=== PATIENT | male | born 1975 | race Caucasian/White ===

== ENCOUNTER 2017-09-14 01:05 | Inpatient (IN) | payer MEDICAID, OTHER ==
--- NOTE | 2017-09-14 01:10 | EDPHY ---
H & P Source: Patient, EMS Time Seen by Provider: 09/14/17 01:08 HPI/ROS: HPI CHIEF COMPLAINT: Suicide attempt, hanging, M1 hold by police HISTORY OF PRESENT ILLNESS: Patient is a 41-year-old male, otherwise healthy, history depression, presents emergency room after he attempted to hang himself with a climbing wrote from a [place] and then jumped off a table. The road apparently gave way. Does have some abrasions to the anterior neck. No trouble swallowing or breathing. This was a suicide attempt. He states that his is serving him with divorce papers in his due to sign tomorrow he has been feeling more depressed and upset. Denies ingestion. Denies alcohol intoxication. Past Medical History: Depression Past Surgical History: No recent surgical history Social History: Lives locally, denies daily use drugs alcohol tobacco. Family History: Noncontributory ROS REVIEW OF SYSTEMS: A comprehensive 10 point review of systems is otherwise negative aside from elements mentioned in the history of present illness. Exam Constitutional appears well nontoxic no acute distress, triage nursing summary reviewed, vital signs reviewed, awake/alert. Eyes normal conjunctivae and sclera, EOMI, PERRLA. HENT head/neck exam: Abrasion to the anterior neck, no neck crepitus on exam, no stridor, no trouble breathing, no drooling, no significant neck swelling normal inspection, atraumatic, moist mucus membranes, no epistaxis, neck supple / no meningismus, no raccoon eyes. Respiratory clear to auscultation bilaterally, normal breath sounds, no respiratory distress, no wheezing. Cardiovascular rate normal, regular rhythm, no murmur, no edema, distal pulses normal. Gastrointestinal soft, non-tender, no rebound, no guarding, normal bowel sounds, no distension, no pulsatile mass. Genitourinary no CVA tenderness. Musculoskeletal no midline vertebral tenderness, full range of motion, no calf swelling, no tenderness of extremities, no meningismus, good pulses, neurovascularly intact. Skin pink, warm, & dry, no rash, skin atraumatic. Neurologic awake, alert and oriented x 3, AAOx3, moves all 4 extremities equally, motor intact, sensory intact, CN II-XII intact, normal cerebellar, normal vision, normal speech. Psychiatric flat affect, depressed, suicidal Heme/Lymph/Immune no lymphadenopathy. Differential Diagnosis: Includes but is not limited to suicide attempt, and hanging attempt, neck injury, depression, mood disorder, substance abuse, mental illness Medical Decision Making: Plan for this patient CT neck without contrast for trauma, attempted hanging, basic blood work, patient is on M1 hold by police will medically clear and then re-evaluate. Patient need mental health evaluation. Re-evaluation: CT cervical spine without contrast negative for acute traumatic injury called to me by Dr. Wiggins. 0511: Patient had mental health evaluation they would like to seek inpatient psychiatric treatment. Patient remains on M1 hold. 0700AM: Signed over to Dr. Veliz at 7am Shift-change (Janes Armenta) Constitutional: Initial Vital Signs Temperature (C) 36.8 C 09/14/17 01:17 Heart Rate 79 09/14/17 01:17 Respiratory Rate 18 09/14/17 01:17 Blood Pressure 138/88 H 09/14/17 01:17 O2 Sat (%) 100 09/14/17 01:17 O2 Delivery Mode Room Air Allergies/Adverse Reactions: No Known Allergies Allergy (Unverified 09/01/09 20:19) Home Medications: Medication Instructions Recorded NK [No Known Home Meds] 09/14/17 Medical Decision Making ED Course/Re-evaluation: 8:00 a.m. the patient has been accepted at [address] [place] [address] Zuluaga. We will complete transfer paperwork. (Sea Veliz) - Data Points Laboratory Results: Laboratory Results 09/14/17 01:20 09/14/17 01:20 09/14/17 09/14/17 09/14/17 02:18 01:20 01:20 WBC 8.49 10^3/uL 10^3/uL (3.80-9.50) RBC 5.45 10^6/uL 10^6/uL (4.40-6.38) Hgb 16.2 g/dL g/dL (13.7-17.5) Hct 45.6 % % (40.0-51.0) MCV 83.7 fL fL (81.5-99.8) MCH 29.7 pg pg (27.9-34.1) MCHC 35.5 g/dL g/dL (32.4-36.7) RDW 12.9 % % (11.5-15.2) Plt Count 251 10^3/uL 10^3/uL (150-400) MPV 9.3 fL fL (8.7-11.7) Neut % (Auto) 69.1 % % (39.3-74.2) Lymph % (Auto) 19.7 % % (15.0-45.0) [place] % (Auto) 10.5 % % (4.5-13.0) Eos % (Auto) 0.2 % L % (0.6-7.6) Baso % (Auto) 0.4 % % (0.3-1.7) Nucleat RBC Rel Count 0.0 % % (0.0-0.2) Absolute Neuts (auto) 5.87 10^3/uL 10^3/uL (1.70-6.50) Absolute Lymphs (auto) 1.67 10^3/uL 10^3/uL (1.00-3.00) Absolute Monos (auto) 0.89 10^3/uL H 10^3/uL (0.30-0.80) Absolute Eos (auto) 0.02 10^3/uL L 10^3/uL (0.03-0.40) Absolute Basos (auto) 0.03 10^3/uL 10^3/uL (0.02-0.10) Absolute Nucleated RBC 0.00 10^3/uL 10^3/uL (0-0.01) Immature Gran % 0.1 % % (0.0-1.1) Immature Gran # 0.01 10^3/uL 10^3/uL (0.00-0.10) Sodium 144 mEq/L mEq/L (135-145) Potassium 3.7 mEq/L mEq/L (3.5-5.2) Chloride 105 mEq/L mEq/L (97-110) Carbon Dioxide 23 mEq/l mEq/l (22-31) Anion Gap 16 mEq/L mEq/L (8-16) BUN 25 mg/dL H mg/dL (7-23) Creatinine 1.2 mg/dL mg/dL (0.7-1.3) Estimated GFR > 60 Glucose 91 mg/dL mg/dL (70-100) Calcium 10.0 mg/dL mg/dL (8.5-10.4) Urine Opiates Screen NEGATIVE (NEGATIVE) Urine Barbiturates NEGATIVE (NEGATIVE) Ur Phencyclidine Scrn NEGATIVE (NEGATIVE) Ur Amphetamine Screen NEGATIVE (NEGATIVE) U Benzodiazepines Scrn NEGATIVE (NEGATIVE) Urine Cocaine Screen NEGATIVE (NEGATIVE) U Marijuana (THC) Screen NON-NEGATIVE H (NEGATIVE) Ethyl Alcohol < 10 mg/dL mg/dL (0-10) Medications Given: Discontinued Medications Lorazepam (Ativan) 1 mg PO EDNOW ONE Stop: 09/14/17 05:37 Last Admin: 09/14/17 05:39 Dose: 1 mg Lorazepam (Ativan) 2 mg PO EDNOW ONE Stop: 09/14/17 06:59 Last Admin: 09/14/17 07:01 Dose: 2 mg Departure - Departure Disposition: [facility] Acute Clinical Impression: Suicidal behavior Condition: Fair Referrals: NONE *PRIMARY CARE P,. [Primary Care Provider] - As per Instructions
[2017-09-14 01:29] LABS: PLATELET COUNT 251 10^3/uL (150-400)
[2017-09-14] MEDS ORDERED: LORazepam 1 MG TAB ONE ×2 (05:35→06:56)
[2017-09-14] MEDS ORDERED: LORazepam 1 MG TAB PO ONE ×2 (05:36→06:58)
[2017-09-14] MEDS ORDERED: OLANZapine DISINTEGR 10 MG TAB PO PRN ×2 (10:26→13:51)
[2017-09-14] MEDS ORDERED: MAGNESIUM HYDROXIDE 30 ML UDCUP PO PRN (10:26)
[2017-09-14] MEDS ORDERED: MAG HYDROX/AL HYDROX/SIMETH 30 ML UDCUP PO PRN (10:26)
[2017-09-14] MEDS ORDERED: LORazepam 0.5 MG TAB PO PRN (10:26)
[2017-09-14] MEDS ORDERED: NICOTINE POLACRILEX 2 MG GUM B PRN (10:26)
[2017-09-14] MEDS ORDERED: hydrOXYzine HCL 25 MG TAB PO PRN (13:51)
[2017-09-14] MEDS ORDERED: OLANZapine DISINTEGR 5 MG TAB PO PRN (14:06)
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
[2017-09-14] MEDS: DIVALPROEX NA 500 MG TAB PO SCH (20:45)
[2017-09-14] MEDS: TEMAZEPAM 15 MG CAP PO PRN (20:45)
[2017-09-15] MEDS: DIVALPROEX NA 500 MG TAB PO SCH ×2 (08:48→21:02)
--- NOTE | 2017-09-15 13:39 | SOAPPROG ---
SOAP Progress Note Assessment/Plan: Assessment: 41 yo man with no prior psych hx who presented to ED with h/o irritability, insomnia, threatening behavior toward , depression x 3 mos as well as 2 reported suicide attempts (by hanging and CO poisoning) this week. Plan: 09/15/17 13:34 1. Patient dx with unspecified bipolar disorder on admission. Dr. Cee discussed the r/b/se's of mood stabilizers including lithium and VPA with patient on 09/14/17 and patient said he would "think about" taking meds. He was offered VPA last night and this AM and decided to start taking this medication for his mood and erratic behaviors. 2. Patient also took Temazepam 15 mg last night and slept 10-1/2 hrs. He reports feeling "out of it" and groggy this AM. 3. Patient had labs yesterday. His HgbA1c was 5.8, his liver function tests were WNL and his lipid panel was also WNL. His TSH was WNL. 4. Patient denies any suicidal ideation, plan or intent today. Subjective: Met with patient, reviewed chart and d/w staff. Patient presents groggy and disorganized this AM. He does not have racing thoughts or pressured speech. There is no evidence of elevated/elated mood, grandiose delusions, decreased need for sleep or increase in goal-directed activity. He denies hallucinations and there is no evidence of RIS/RES, paranoia, bizarre thoughts or IOR. He has a hard time focusing on conversation and there is a response latency when asked questions. When MD why patient thinks he is in hospital, he becomes very discursive and tells MD, "I have a life situation...my and I are ." He then goes on to talk about mediation meeting he was supposed to attend with his on Sunday at 2pm. However, he admits, "it's scary" b/c patient doesn't know "where I will live" or "how often I can see my kids." Patient denies any thoughts, plan or intent to hurt himself or anyone else. Objective: Vital Signs Temp Pulse Resp BP Pulse Ox 36.5 C 96 20 120/84 H 98 09/15/17 06:00 09/15/17 06:00 09/15/17 06:00 09/15/17 06:00 09/15/17 06:00 MSE: Affect: Flat Mood: "Tired" TP: Disorganized, circumstantial TC: Denies any SI/HI, no evidence of psychosis or anel Insight/Judgment: Impaired - Time Spent With Patient Time Spent With Patient: 25" - Pending Discharge Pending Discharge Within 24 Hours: No Pending Discharge Within 48 Hours: No ICD10 Worksheet Patient Problems: Problems Problem Status Onset Adjustment disorder with depressed mood Acute Bipolar 2 disorder Acute Cannabis use disorder, severe, dependence Acute Intermittent explosive disorder Acute Partner relationship problem Acute Personality disorder Acute Suicidal behavior Acute
[2017-09-15] MEDS: ACETAMINOPHEN 325 MG TAB PO PRN ×2 (14:29→21:17)
[2017-09-15] MEDS: TEMAZEPAM 15 MG CAP PO PRN (21:05)
[2017-09-16] MEDS: DIVALPROEX NA 500 MG TAB PO SCH ×2 (08:20→17:45)
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
[2017-09-16] MEDS ORDERED: TEMAZEPAM 15 MG CAP PO PRN (20:51)
[2017-09-17] MEDS: DIVALPROEX NA 500 MG TAB PO SCH ×2 (09:06→17:17)
--- NOTE | 2017-09-17 12:32 | SOAPPROG ---
SOAP Progress Note Assessment/Plan: Assessment: Bipolar Disorder, I, most recent episode depressed with mixed features Cannabis Use Disorder - severe Possible Intermittent Explosive Disorder or Personality Disorder Partner Relationship Problem, Adjustment Disorder Financial/Housing stressors Child Protective Services report ID#[id number] Patient admitted after 2 serious suicide attempts; had severe insomnia with agitation and impulsivity and mood swings prior to admission. reported patient was yelling, destroying property, and threatened to burn down house prior to admission. Today patient appears calm and appropriate, denies suicidal thoughts, but was very labile and emotional yesterday. Patient having excessive AM sedation from PRN medications. Plan: Patient on short term certification Continue Depakote 500mg QAM and 1000mg QHS Recheck Depakote level in AM with AST, ALT Discontinue PRN Olanzapine, Hydroxyzine, Temazepam Start Seroquel 50mg [id number] PRN agitation/anxiety Monitor mood, behavior, impulse control, judgment, risk of self-harm Contacted Child Protective Services, report ID#[id number] Refer to [facility] 09/17/17 12:42 Subjective: CC: "Doing OK, more calm, more realistic" Patient reports over weekend sleeping excessively, 10-11 hours and feeling ' drunk' in mornings and unsteady. Reports in afternoons having brief mood swings following visits by , with severe anxiety, severe sadness, and severe hopelessness. Denies any recurrence of suicidal thoughts over the weekend. Reports wanting to live for children and to return to work to provide for them. Reports today feeling calm and denies feeling agitated. Reports he is willing to engage in individual therapy and take medication after discharge. Objective: Vital Signs Temp Pulse Resp BP Pulse Ox 36.5 C 63 16 104/64 98 09/17/17 06:00 09/17/17 06:00 09/17/17 06:00 09/17/17 06:00 09/17/17 06:00 Alert male, ambulatory, appears tired. Speech RRR. "Doing OK, more calm, more realistic" Affect briefly reactive. Thoughts organized. Denies SI or violent thoughts or AH or paranoia. Limited insight. Staff report yesterday patient was volatile - in AM was sedated and drowsy, later euthymic and over-talkative, later after visit from , was lying on floor crying in the position, later agitated and pacing - received Hydroxyzine 25mg, then Olanzapine 5mg, then Temazepam 15mg later. Staff noted patient's visited patient several times on unit and called patient several times, she was observed giving patient a back rub and alternatively reporting that she wanted him to return home then later reporting she wanted to separate from him. Patient slept 10-11 hours overnight, ate breakfast, attended AM groups calmly and interacted with patients and staff appropriately. Depakote level not run due to hemolysis. Reviewed weekend ocular care technician notes. - Time Spent With Patient Time Spent With Patient: 30 minutes - Pending Discharge Pending Discharge Within 24 Hours: No Pending Discharge Within 48 Hours: Yes Pending Discharge Date: 09/19/17 Pending Discharge Time: 11:00 ICD10 Worksheet Patient Problems: Problems Problem Status Onset Adjustment disorder with depressed mood Acute Bipolar 2 disorder Acute Cannabis use disorder, severe, dependence Acute Intermittent explosive disorder Acute Partner relationship problem Acute Personality disorder Acute Suicidal behavior Acute
--- NOTE | 2017-09-17 17:19 | BCON ---
[f rep st] BEHAVIORAL HEALTH CONSULTATION INTERNAL MEDICINE CONSULTATION DATE OF CONSULTATION: 09/17/2017 REFERRING PHYSICIAN: KENDELL BRADFORD MD REASON FOR REFERRAL: Medical clearance for inpatient behavioral health stay. HISTORY OF PRESENT ILLNESS: This patient came to [facility] 3 days ago following a suicide attempt by hanging. He was evaluated by the mental health team and admitted for further psychiatric care. Currently, he complains of right calf pain and tenderness. He thinks he has a muscle cramp which he said has happened to him in the past after climbing [place] and becoming dehydrated. He also thinks that he is dehydrated. Yesterday, he was apparently over-sedated by psychiatric medications and his oral intake was low. He says he is "pounding water" now. 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 PAST SURGICAL HISTORY: He denies any history of surgeries. MEDICATIONS: He was taking no medications. SOCIAL HISTORY: He is a nonsmoker. He uses occasional alcohol. He is and has been living with his , though there is marital discord. He works as a construction consultant. FAMILY HISTORY: Noncontributory. He reports he was raised by a single mother and that he does not know very much about his family history. REVIEW OF SYSTEMS: He feels somewhat tired. He feels thirsty. He has right calf pain and tenderness; he says it is very sore. He denies cough or dyspnea. He denies pain otherwise. He denies fever or chills, and otherwise a 10- point review of systems is negative. PHYSICAL EXAM: VITAL SIGNS: Blood pressure is 104/76, heart rate is 63, respiratory rate is 16, oxygen saturation is 98% on room air, temperature is 36.5 degrees centigrade. His weight is 71 kg for a body mass index of 22.5. GENERAL: This is a well-nourished, well-developed man, appears his chronologic age, cooperative and in no acute distress. HEENT: Extraocular movements are intact. Pupils are equal and round, reactive to light. Mucous membranes are moist. Dentition is in good condition. NECK: Supple. HEART: Regular rate and rhythm with no murmurs, rubs, or gallops. LUNGS: Clear to auscultation bilaterally. ABDOMEN: Benign. EXTREMITIES: There is no cyanosis, clubbing, or edema. He is very tender in the right calf. Calf muscles are soft with no palpable muscle spasm. NEUROLOGIC: He is alert and oriented x3. Cranial nerves 2-12 are grossly intact. There is no focal weakness. Sensation is intact to light touch. LABORATORY STUDIES: From the emergency department, CBC was overall within normal limits. Serum chemistry showed some dehydration with a BUN of 25 and a creatinine of 1.2. Hemoglobin A1c was normal at 5.8. Liver function tests were normal. Lipid panel was normal. TSH was normal. Toxicology screen in the serum was negative for ethyl alcohol and in the urine was non-negative for marijuana but otherwise negative for any substances of abuse. A valproic acid level was drawn yesterday but was not processed due to gross hemolysis. ASSESSMENT/RECOMMENDATIONS: 1. Mental health issues, pending further evaluation and management per Psychiatry and the mental health team. 2. Right calf pain with history of right subclavian vein thrombosis in his 20s. Otherwise low risk per Wells score. I will get an ultrasound of the right calf to rule out a deep venous thrombosis. 3. Marijuana use disorder. I see no medical contraindications to this patient's continued stay on the inpatient behavioral health unit or to any psychiatric medications or procedures. Thank you very much for including me in the care of this patient and please do not hesitate to contact me or the hospitalist service should there be need for further medical evaluation. /[id number]/MODL MTDD
[2017-09-17 20:24] LABS: INR 0.97 (0.83-1.16); PROTIME(PATIENT) 13.1 SEC (12.0-15.0)
[2017-09-17] MEDS: APIXABAN 5 MG TAB PO SCH (20:25)
[2017-09-17] MEDS: QUEtiapine FUMARATE 50 MG TAB PO PRN (21:58)
[2017-09-18] MEDS: DIVALPROEX NA 500 MG TAB PO SCH ×2 (08:41→21:06)
[2017-09-18] MEDS: APIXABAN 5 MG TAB PO SCH (08:42)
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
[2017-09-18] MEDS: WARFARIN SODIUM 5 MG TAB PO SCH (18:09)
[2017-09-18] MEDS: QUEtiapine FUMARATE 50 MG TAB PO PRN ×3 (18:09→23:37)
[2017-09-18] MEDS: ENOXAPARIN 80 MG/0.8 ML SYR SC SCH (21:10)
[2017-09-19 08:33] LABS: INR 1.06 (0.83-1.16)
[2017-09-19] MEDS: DIVALPROEX NA 500 MG TAB PO SCH ×2 (08:54→20:38)
[2017-09-19] MEDS: ENOXAPARIN 80 MG/0.8 ML SYR SC SCH ×3 (09:08→21:15)
[2017-09-19] MEDS ORDERED: MIRTAZAPINE 15 MG TAB PO PRN (14:04)
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
[2017-09-19] MEDS: WARFARIN SODIUM 5 MG TAB PO SCH (16:31)
[2017-09-19] MEDS ORDERED: MELATONIN 3 MG TAB PO SCH (21:00)
[2017-09-20 06:38] VITALS: BP 118/73
[2017-09-20 08:21] LABS: INR 1.25 (0.83-1.16); PROTIME(PATIENT) 15.9 SEC (12.0-15.0)
[2017-09-20] MEDS: DIVALPROEX NA 500 MG TAB PO SCH (11:06)
[2017-09-20] MEDS: ENOXAPARIN 80 MG/0.8 ML SYR SC SCH (11:06)
--- NOTE | 2017-09-20 12:55 | BDS ---
[f rep st] BEHAVIORAL HEALTH DISCHARGE SUMMARY IDENTIFICATION: This is a 41-year-old male who lives with his and 4 children. He works in construction. He was not in any mental health treatment prior to admission. REASON FOR ADMISSION: Please see initial psychiatric evaluation from September 14, 2017. The patient apparently had attempted suicide by hanging in his garage, had a neck abrasion and pain. An ambulance was called to his home, and he was transferred to the ER. In the ER, he had a negative spine CT test, and he was then admitted to the inpatient psychiatric unit on an M1 hold due to concerns he was a danger to himself from a suicide attempt. HOSPITAL COURSE: The patient reported no prior mental health treatment in the past and no prior psychiatric medication trials. He reported no history of suicide attempts or violence toward others. He did report 2 suicide attempts in the days prior to admission. He reported 2 days prior to admission that he had tried to kill himself with carbon monoxide in the garage, and then the day of admission, the day of the ER visit, he tried to hang himself with a rope. The patient reported that in the past 4 months, he had been having severe insomnia, only sleeping a few hours at night, sometimes going 3-4 days without any sleep. He admitted to having irritability, agitation, yelling at his , throwing things and breaking things. He also reported a depressed mood for 1 week prior to admission, with recurrent suicidal thoughts. He reported that his yelling, screaming and throwing things and irritability starting 4 months ago led to his seeking a material man and talking about separation with the patient. He reported that on the day of his first suicide attempt, he had been told by his that she wanted to separate. The patient reported smoking cannabis several days a week. After admission to the unit when he was admitted , reported continuing to feel depressed, hopeless and sad. He also was tangential and rambling and irritable. The patient denied any history of auditory hallucinations or paranoia. He denied violent thoughts toward his or children, or any homicidal thoughts toward anyone. He reported a 4- month history of severe mood swings, insomnia, irritability and explosive anger. The assessment of the patient was complicated by the fact that the patient also reported that his would yell and scream at him and belittle him in front of his children regarding his difficulty functioning at work and difficulty taking care of his kids and doing household tasks. The patient's reported that the patient had been irritable, yelling, and menacing to her and the children. He had been destroying property in the home when upset, and this had been occurring over a 4-month period. She did report 1 week prior to admission the patient made a statement about burning down the house. The patient denied this allegation. The patient's reported that due to the patient screaming , yelling and throwing things and threat to burn down the house, that she and her children felt in danger and felt it was unsafe for him to be around them. The patient's did visit on the unit and called him several times on the unit. She was observed interacting appropriately with the patient on the unit and giving him a back rub and speaking appropriately with him on the unit. However, when she was not on the unit, she would call the nurse's station, this physician, or the social services manager, reporting that she felt unsafe being around the patient and did not want the patient to be returning home. Due to the report that the patient had made a threat of burning down the house 1 week prior to admission, combined with the fact that both the patient and the reported that they were yelling at each other and that the patient had been throwing things and destroying property in the home, Child Protective Services was contacted. The patient and the both reported that the patient had never hit the children or harmed the children, but it appeared to be an unsafe home environment. After Child Protective Services was notified of the situation , the patient's then took out a restraining order. There will be a hearing regarding this issue on October 01. On the unit, the patient initially presented as very tangential, labile, dysphoric, and tearful, briefly irritable. He was receptive to a diagnosis of bipolar disorder and possibly intermittent explosive disorder. He was given counseling about the dangers of cannabis causing anxiety, agitation, irrational thinking and behaviors. The patient was agreeable to start Depakote as a mood stabilizer for depression with mixed features, with a history of manic symptoms for several months and severe depression for at least one week. The patient was started on Depakote 500 mg and 1000 at night. He was given p.r.n. Zyprexa initially and then later Seroquel 50 or 100 at bedtime for sleep. The patient reported a marked improvement in mood and sleep with the combination of Depakote and Seroquel. One night prior to discharge, the patient tried to go without the Seroquel, but then had only 6 hours of sleep and so wanted to continue the Seroquel as a mood stabilizer and for insomnia. The patient tolerated Depakote without any severe side effects or sedation. He had a marked improvement in affect. He became more calm, more organized, less tangential, and reported a subjective improvement in mood. The patient's depression was complicated by the fact that he was presented with a restraining order by police, issued by his , and received phone calls from her in which she was telling him that he could not have any contact with the children. The patient denied further suicidal ideation. He denied violent thoughts toward his or children, or any thoughts of burning down his house. He was future oriented, reported wanting to live for his children, wanting to return to work. Discharge planning was complicated by the fact that the patient was diagnosed with a deep vein thrombosis in his right thigh. The patient was evaluated by Dr. Vinson, initially started on Eliquis, but apparently this was not covered by his insurance, and then he was switched to a combination of Lovenox injections and warfarin. The patient had subtherapeutic INR, and so will be discharged with both warfarin and Lovenox, with a followup on the day after discharge with his primary care provider to recheck his INR to determine what dose of Coumadin he should be taking, and to clarify if he needs to continue Lovenox. Due to this medical complication, the patient was not accepted as a referral to [facility], which is a step-down unit through [facility]. The patient was agreeable to a referral to [facility] for outpatient counseling and psychiatric medication management after discharge. Neither the patient's nor her parents, who live in the area, who are supports for the patient, were able to provide him with financial resources for independent housing after discharge. 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 He reports after that, he would then make a determination about a longer term housing plan. On the unit, the patient was able to complete a safety plan. He appeared calm, euthymic and appropriate. He was able to attend groups. He was eating well and interacting appropriately with others. He did not appear to be in further emotional distress prior to discharge. He was future oriented, discussing upcoming court hearings, the necessity of getting outpatient mental health treatment, continuing with Depakote and Seroquel as mood stabilizers, and exploring alternative longer term housing plans. The patient had several visits from his prior to the restraining order, as well as from his 's parents that went well. CONDITION ON DISCHARGE: He is an alert, male who is ambulatory, in no acute distress. He has no tremors. His affect is restricted, but brief smiling and humor at times. He denies thoughts to hurt himself or others. He describes his mood as "a lot better" and "a lot more calm." He denies hallucinations or paranoia. His thoughts are organized. He has fair insight, with appropriate judgment. PROCEDURES: The patient had a cervical spine CT in the emergency department on September 14. He had an extremity venous study on September 17 of his right lower extremity, which showed a thrombus. The patient was seen by Dr. Vinson for a hospitalist evaluation on September 17, 2017. ADVANCE DIRECTIVES: The patient declined an advance directive at this time. METABOLIC SCREENING: The patient had baseline lipids and a hemoglobin A1c that were in the normal range. He was counseled about the risks of Seroquel causing metabolic syndrome, diabetes, hyperlipidemia. ALCOHOL AND NICOTINE USE DISORDER SCREENING: Patient denied regular use of alcohol or nicotine. CANNABIS USE DISORDER COUNSELING: The patient received education about the dangers of cannabis causing anxiety, paranoia, psychosis and irrational thinking. LAB RESULTS: White blood cell count 8.4, hemoglobin 16.2, platelet count 251. PT 15.9, INR 1.25. APTT is 30.6 seconds. Fibrinogen is 377. D-dimer is 2.28. Protein C activity is 88%. Protein S activity is pending. Antithrombin 3 activity is 103%. Factor V Leiden tests are pending. Sodium 144, potassium 3.7 , creatinine 1.2, glucose 91. Hemoglobin A1c 5.8, calcium 10.0, AST 18, ALT 37 , triglycerides 112, LDL 87, HDL 58, TSH 1.5. Urine tox screen in the emergency room was positive for cannabis, but negative for other drugs of abuse. The patient had a valproic acid level of 116. His anticardiolipin antibody tests were negative. DISCHARGE DIAGNOSES: Bipolar disorder type 1, most recent episode mixed, severe, without psychotic features. Cannabis use disorder, severe. Partner relationship problems, severe. Rule out intermittent explosive disorder. Rule out personality disorder. Rule out adjustment disorder with depressed mood. RIght lower extremity deep vein thrombosis. Housing, financial, and legal stressors DISCHARGE MEDICATIONS: Include the following: Depakote 500 mg by mouth in the morning and 1000 mg at night; Seroquel 100 mg by mouth at bedtime; Lovenox, which is enoxaparin, 80 mg in 0.8 mL syringe subcutaneous twice a day; warfarin 5 mg daily at 4 p.m. The Depakote and Seroquel prescriptions were written as a bubble pack for 1 month. The enoxaparin and warfarin orders were only for 24 hours as the patient has a primary care appointment tomorrow morning at the [facility] at [address] [place] [address]. DISPOSITION: The patient is leaving the unit independently after his father-in- law meets with him to drop off his wallet, phone, and some possessions. FOLLOWUP: The patient has appointments tomorrow morning at [facility] to have his INR rechecked to determine if he needs to continue Lovenox or have his warfarin dose adjusted. He also has an appointment tomorrow afternoon at [facility] for an intake for mental health treatment. LEGAL STATUS: The patient was admitted on an M1 hold and then placed on a short -term certification as he was irritable and had been impulsive prior to admission and was ambivalent about receiving mental health treatment. This will be terminated upon discharge. The patient will be a voluntary treatment. INFORMED CONSENT: The patient was counseled about the risks of Depakote causing pancreatitis, hepatitis, thrombocytopenia, and sedation. He was counseled about the risks of Seroquel causing tardive dyskinesia and metabolic syndrome. /[id number]/MODL MTDD
[2017-09-24] MEDS ORDERED: APIXABAN 5 MG TAB PO SCH (21:00)
== END 2017-09-20 12:45 | disposition home or self-care (01) | DRG 753 ==
LOC: EDUNIT# → BBEH 10:05
DX: F31.4 Bipolar disorder, current episode depressed, severe, without psychotic features (principal); Z63.0 Problems in relationship with spouse or partner; F12.90 Cannabis use, unspecified, uncomplicated; I82.4Y1 Acute embolism and thrombosis of unspecified deep veins of right proximal lower extremity
CPT/HCPCS: 80305; 85300-90; 85303-90; 85306-90; 86147-90; G0480; J1650